=== PATIENT | male | born 2000 | race Caucasian/White ===

== ENCOUNTER 2022-01-15 00:31 | Emergency (ER) | payer OTHER, SELFPAY ==
[2022-01-15 00:36] VITALS: BP 148/95; PULSE 89; TEMP 36.9; O2SAT 96; BMI 27.3
[2022-01-15] MEDS: TETANUS/DIPHTH/PERTUSSIS 0.5 ML SYRINGE IM (01:02)
--- NOTE | 2022-01-15 04:32 | ED.WOUNDLAC ---
HPI - Wound/Laceration General Date Seen: 01/15/22 Chief Complaint: Laceration/Wound Stated Complaint: LT middle finger cut Time Seen by Provider: 01/15/22 01:08 History of Present Illness HPI narrative: Patient is a 21-year-old male brought in by his father with an injury to his left middle finger. He was attempting to cut up some marilynn with a kitchen knife when he slipped and caught a portion of his off. He presents for evaluation because they could not control the bleeding at home. Last tetanus was 11 years ago and that is updated tonight. Pain is fairly intense. Denies other injury. Related Data Previous Rx's Medication Instructions Recorded cephalexin 500 mg capsule 500 mg PO TID #15 caps 01/15/22 oxycodone 5 mg tablet 5 mg PO Q8H PRN pain #15 tabs 01/15/22 Allergies Allergy/AdvReac Type Severity Reaction Status Date / Time No Known Drug Allergies Allergy Verified 01/15/22 00:39 Review of Systems Status of ROS: Reports: 10 or more systems reviewed and unremarkable except as noted in History and below PFSH PFSH Social History Smoking Status: Never smoker Do you use any of these nicotine containing products: None Second hand tobacco smoke exposure: No How often do you have a drink containing alcohol: 4 or more times a week How many standard drinks containing alcohol do you have on a typical day: 1 or 2 How often do you have six or more drinks on one occasion: Never AUDIT-C Alcohol total score: 4 Non-prescribed substance use: marijuana (any form) Exam Narrative: Exam Narrative: Examination is limited to the left upper extremity. He has an avulsion of the left middle finger nail involving about half of the nail. This is bleeding profusely. No arterial bleeding. It is also exquisitely tender. Const: Vital Signs, click to edit/add: Vital Signs - 24 hr 01/15/22 00:36 Temperature 98.5 F Pulse Rate [Right Pulse Oximeter] 89 Blood Pressure [Ri ght Upper Arm] 148/95 H Pulse Oximetry 96 Oxygen Delivery Me thod Room Air Course Course Hospital Course: Patient is seen and examined. A digital block is placed with 2 mL of 1% lidocaine and 2 mL of 0.25% Marcaine. Following excellent anesthesia was better able to examined the wound. There is no bony involvement. No arterial bleeding. I applied Monsel's solution to the nail bed x2 and there was no further bleeding. It is dressed with bacitracin, Adaptic, and tube gauze. He tolerated this well. Tetanus is updated. Vital Signs Vital signs: Initial Vital Signs Temperature 98.5 F 01/15/22 00:36 Temperature Source Temporal Artery Scan 01/15/22 00:36 Pulse Rate 89 01/15/22 00:36 Blood Pressure 148/95 H 01/15/22 00:36 Blood Pressure Mean 112 01/15/22 00:36 Blood Pressure Position Supine 01/15/22 00:36 Pulse Oximetry 96 01/15/22 00:36 Oxygen Delivery Method 01/15/22 00:36 Vital Signs Temperature 98.5 F 01/15/22 00:36 Pulse Rate 89 01/15/22 00:36 Blood Pressure 148/95 H 01/15/22 00:36 Pulse Oximetry 96 01/15/22 00:36 Oxygen Delivery Method 01/15/22 00:36 Temperature 98.5 F 01/15/22 00:36 Pulse Rate 89 01/15/22 00:36 Blood Pressure 148/95 H 01/15/22 00:36 Pulse Oximetry 96 01/15/22 00:36 Oxygen Delivery Method 01/15/22 00:36 Discharge Plan Discharge Clinical Impression: Avulsion of fingernail of left hand Patient Disposition: Home w/ Parent or Adult Condition: Improved Additional Instructions: Leave dressing in place for the next several days. Use Tylenol and ibuprofen for pain. Use oxycodone for refractory pain. Keep the area clean, dry, protected until healed. Follow-up with your PCP as needed. Prescriptions: New oxycodone 5 mg tablet 5 mg PO Q8H PRN (Reason: pain) Qty: 15 0RF cephalexin 500 mg capsule 500 mg PO TID Qty: 15 0RF Follow Up/Referrals: Provider,Not a Local [Primary Care Provider] - Stand Alone Forms: [employer] Info Instructions
== END 2022-01-15 02:40 | disposition home or self-care (01) ==
PROVIDERS: Emergency Provider Family Medicine
DX: S61.313A Laceration without foreign body of left middle finger with damage to nail, initial encounter (principal); W26.0XXA Contact with knife, initial encounter; Y93.G3 Activity, cooking and baking
CPT/HCPCS: 90471; 90715; 99282